=== PATIENT | male | born 1995 | race Caucasian/White ===

== ENCOUNTER 2017-09-18 13:45 | Emergency (ER) | payer OTHER ==
[2017-09-18] MEDS ORDERED: KETOROLAC 30 MG/ML VIAL IVP STA (13:56)
[2017-09-18] MEDS ORDERED: fentaNYL 100 MCG/2 ML VIAL IVP STA ×2 (13:56→16:17)
[2017-09-18] MEDS ORDERED: SODIUM CHLORIDE 0.9% 1,000 ML IV ONE ×2 (13:56→15:18)
[2017-09-18] MEDS ORDERED: ONDANSETRON 4 MG/2 ML VIAL IVP STA (13:56)
--- NOTE | 2017-09-18 14:00 | ED Physician Documentation ---
PD HPI ABD PAIN - Stated complaint Stated Complaint: ABD PAIN - Chief complaint Chief Complaint: Abd Pain - History obtained from History obtained from: Patient - History of Present Illness Timing - onset: How many hours ago (1.5) Timing - details: Abrupt onset Quality: Sharp Location: RLQ Radiation: Right flank Associated symptoms: Nausea, Vomiting (once). No: Fever, Diarrhea, Dysuria Similar symptoms before: Has not had sx before - Additional information Additional information: The patient is an otherwise healthy 22-year-old male who presents with right- sided abdominal pain that started suddenly about 90 minutes prior to arrival. He reports associated nausea, with one episode of vomiting. He denies fever or dysuria. He last ate about 2 and a half hours prior to arrival. He denies history of similar symptoms in the past. Review of Systems Constitutional: denies: Fever Nose: denies: Congestion Throat: denies: Sore throat Cardiac: denies: Chest pain / pressure Respiratory: denies: Dyspnea, Cough GI: reports: Abdominal Pain, Nausea, Vomiting. denies: Diarrhea : denies: Dysuria Skin: denies: Rash Musculoskeletal: denies: Back pain Neurologic: denies: Headache PD PAST MEDICAL HISTORY - Past Medical History Cardiovascular: None Respiratory: None Neuro: None Endocrine/Autoimmune: None - Present Medications Home Medications: Ambulatory Orders Medication Instructions Recorded Confirmed Promethazine [Phenergan] 25 - 50 mg PO Q6H PRN #10 tab 09/18/17 Sertraline [Zoloft] 1 tab PO DAILY 09/18/17 09/18/17 Tamsulosin [Flomax] 0.4 mg PO DAILY #5 capsule 09/18/17 oxyCODONE/ACET 5/325 [Percocet 5 1 - 2 tab PO Q4-6H PRN #15 tablet 09/18/17 mg/325 mg] - Allergies Allergies/Adverse Reactions: Allergies Allergy/AdvReac Type Severity Reaction Status Date / Time No Known Drug Allergies Allergy Verified 09/18/17 13:58 PD ED PE NORMAL - Vitals Vital signs reviewed: Yes (borderline systolic hypertension) - General General: Alert and oriented X 3, Well developed/nourished - HEENT HEENT: Atraumatic, Pharynx benign - Neck Neck: No adenopathy, No JVD - Cardiac Cardiac: RRR, No murmur - Respiratory Respiratory: No respiratory distress, Clear bilaterally - Abdomen Abdomen: Normal bowel sounds, Soft, Other (Tenderness to palpation in right midabdomen, without rebound or guarding.) - Back Back: Other (Mild right flank tenderness to palpation.) - Derm Derm: No rash - Extremities Extremities: No edema, No calf tenderness / cord - Neuro Neuro: Alert and oriented X 3, No motor deficit, Normal speech Results - Vitals Vitals: Oxygen O2 Source Room air - Labs Labs: Laboratory Tests 09/18/17 09/18/17 09/18/17 14:05 14:05 15:50 WBC 13.5 H RBC 4.77 Hgb 15.0 Hct 43.2 MCV 90.6 MCH 31.5 H MCHC 34.8 RDW 13.0 Plt Count 201 MPV 8.8 Neut # (Auto) 10.5 H Lymph # (Auto) 2.2 [place] # (Auto) 0.6 Eos # (Auto) 0.1 Baso # (Auto) 0.1 Absolute Nucleated RBC 0.00 Nucleated RBC % 0.0 Sodium 133 L Potassium 3.3 L Chloride 101 Carbon Dioxide 19 L Anion Gap 13.0 BUN 13 Creatinine 1.2 Estimated GFR (MDRD) 75 L Glucose 143 H Calcium 9.5 Total Bilirubin 1.1 H AST 27 ALT 21 Alkaline Phosphatase 90 Total Protein 8.0 Albumin 4.3 Globulin 3.7 Albumin/Globulin Ratio 1.2 Lipase 25 Urine Color DARK YELLOW Urine Clarity CLOUDY Urine pH 8.5 H Ur Specific [place] 1.010 Urine Protein TRACE Urine Glucose (UA) NEGATIVE Urine Ketones TRACE Urine Occult Blood LARGE H Urine Nitrite NEGATIVE Urine Bilirubin NEGATIVE Urine Urobilinogen 4 H Ur Leukocyte Esterase NEGATIVE Urine RBC TNTC H Urine WBC 0-3 Ur Squamous Epith Cells NONE SEEN Urine Bacteria None Seen Ur Microscopic Review INDICATED Urine Culture Comments NOT INDICATED - Rads (name of study) CT abd/pelvis Radiology: Prelim report reviewed, EMP read contemporaneously, See rad report ( Obstructing 3 mm right UVJ stone with mild right hydronephrosis and hydroureter. Otherwise unremarkable. Normal appendix noted.) PD MEDICAL DECISION MAKING - ED course Complexity details: reviewed results, re-evaluated patient, considered differential, d/w patient ED course: The patient's presentation is most consistent with renal colic due to a 3 mm right ureteral stone at the UVJ. There is no clinical evidence of pyelonephritis, and his appendix appears normal on CT scan. Treatment in the emergency department included administration of normal saline 2 L IV, fentanyl 25 mcg IV 2, ketorolac 30 mg IV, and Zofran 4 mg IV. His pain and nausea resolved with the above treatment. He is being discharged with prescriptions for Phenergan, Flomax, and Percocet, 15 tablets. I discussed with him the diagnosis, symptomatic treatment and outpatient follow-up, as well as potentially worrisome signs or symptoms that should prompt reevaluation in the emergency department. - Sepsis Event Vital Signs: Oxygen O2 Source Room air Departure - Departure Disposition: Home, Self Care Clinical Impression: Renal colic, Right ureteral stone Condition: Stable Instructions: ED Stone Renal W Colic Follow-Up: JERRY Padilla [Provider Group] Prescriptions: oxyCODONE/ACET 5/325 [Percocet 5 mg/325 mg] 1 - 2 tab PO Q4-6H PRN #15 tablet PRN Reason: Pain Promethazine [Phenergan] 25 - 50 mg PO Q6H PRN #10 tab PRN Reason: Nausea / Vomiting Tamsulosin [Flomax] 0.4 mg PO DAILY #5 capsule Comments: Drink plenty of fluids. Take ibuprofen, up to 800 mg 3 times daily to help decrease ureteral spasm. Take Flomax daily as prescribed. You can use Phenergan as prescribed if needed for nausea. You can use Percocet as prescribed if needed for pain. Follow up with your primary physician within 1 week. Call to schedule an appointment. Return to the emergency department if you develop fever, increasing pain despite the pain medication, or persistent vomiting despite the nausea medication. Discharge Date/Time: 09/18/17 17:37
[2017-09-18 14:10] LABS: BASOPHILS # (AUTO) 0.1 10^3/uL (0.0-0.1); BASOPHILS % (AUTO) 0.7 %; EOSINOPHILS # (AUTO) 0.1 10^3/uL (0.0-0.7); EOSINOPHILS % (AUTO) 0.6 %; LYMPHOCYTES # (AUTO) 2.2 10^3/uL (1.5-3.5); LYMPHOCYTES % (AUTO) 16.3 %; MEAN CORPUSCULAR HEMOGLOBIN 31.5 pg (27.0-31.0); MEAN CORPUSCULAR HGB CONC 34.8 g/dL (32.0-36.0); MEAN CORPUSCULAR VOLUME 90.6 fL (80.0-94.0); MEAN PLATELET VOLUME 8.8 fL (7.4-11.4); MONOCYTES # (AUTO) 0.6 10^3/uL (0.0-1.0); MONOCYTES % (AUTO) 4.8 %; NEUTROPHILS # (AUTO) 10.5 10^3/uL (1.5-6.6); NEUTROPHILS % (AUTO) 77.6 %; PLT - PLATELET COUNT 201 10^3/uL (130-450); RED BLOOD COUNT 4.77 10^6/uL (4.70-6.10); WHITE BLOOD COUNT 13.5 x10^3/uL (4.8-10.8)
[2017-09-18 14:23] LABS: ALBUMIN 4.3 g/dL (3.2-5.5); ALBUMIN/GLOBULIN RATIO 1.2 (1.0-2.2); BILIRUBIN,TOTAL 1.1 mg/dL (0.2-1.0); CALCIUM 9.5 mg/dL (8.5-10.3); CREATININE 1.2 mg/dL (0.6-1.2)
[2017-09-18 15:57] LABS: BILIRUBIN,URINE NEGATIVE (NEGATIVE); GLUCOSE, URINE (UA) NEGATIVE (NEGATIVE); KETONES,URINE (UA) TRACE mg/dL (NEGATIVE); LEUKOCYTE ESTERASE, URINE NEGATIVE (NEGATIVE); NITRITE,URINE NEGATIVE (NEGATIVE); OCCULT BLOOD,URINE LARGE (NEGATIVE); PH,URINE 8.5 PH (5.0-7.5); PROTEIN,URINE TRACE mg/dL (NEGATIVE); UROBILINOGEN,URINE 4 E.U./dL (NORMAL)
[2017-09-18 16:00] LABS: CLARITY,URINE CLOUDY (CLEAR)
[2017-09-18 16:05] LABS: BACTERIA,URINE None Seen /HPF (None Seen); RBC,URINE TNTC /HPF (0-5); SQUAMOUS EPITHELIAL CELL,UR NONE SEEN (<= Few)
[2017-09-18] MEDS ORDERED: IOPAMIDOL-300 100 ML VIAL ONE (16:17)
[2017-09-18] MEDS ORDERED: IOPAMIDOL-300 100 ML VIAL IVP ONE (16:39)
--- NOTE | 2017-09-18 16:52 | CT Report ---
Procedure Date: 09/18/2017 Accession Number: [id number] / [id number] Procedure: CT - Abdomen/Pelvis W/ CPT Code: FULL RESULT: EXAM: CT ABDOMEN AND PELVIS EXAM DATE: 09/18/2017 04:38 PM. CLINICAL HISTORY: RLQ abdomen pain. COMPARISONS: None. TECHNIQUE: Routine helical CT imaging was performed through the abdomen and pelvis. IV contrast: 100 cc of Isovue-300. Enteric contrast: No. Reconstructions: Coronal and sagittal. In accordance with CT protocol optimization, one or more of the following dose reduction techniques were utilized for this exam: automated exposure control, adjustment of mA and/or KV based on patient size, or use of iterative reconstructive technique. FINDINGS: Lung Bases: Unremarkable. Liver: Normal. No masses. Gallbladder/Bile Ducts: Unremarkable. Spleen: Normal. Pancreas: Normal. Adrenal Glands: Normal. Kidneys: Mild right hydronephrosis and hydroureter due to an obstructing 3 mm UVJ stone. No intrarenal stones or other renal abnormality. Peritoneal Cavity/Bowel: Normal. No free fluid, free air or adenopathy. No masses or acute inflammatory process. The appendix is well visualized and normal. Pelvic Organs: Normal. The bladder and visualized pelvic organs are within normal limits. Vasculature: No aneurysms or other significant abnormality. Bones: No significant abnormality. Other: None. IMPRESSION: Obstructing 3 mm right UVJ stone with mild right hydronephrosis and hydroureter. Otherwise unremarkable. Normal appendix noted. [facility]
[2017-09-18 17:35] VITALS: BP 129/65
[2017-09-18] MEDS ORDERED: oxyCOD/ACETAMIN 5 MG/325 MG TABLET PO STA (18:22)
== END 2017-09-18 17:37 | disposition home or self-care (01) ==
LOC: EDBD → ED 13:45
DX: N20.1 Calculus of ureter (principal)
CPT/HCPCS: 36415; 74177; 80053; 81001; 83690; 85025; 96361; 96374; 96375; 96376; 99283; 99284; A9270; Q9967; 81003; 87086